=== PATIENT | female | born 1955 | race Caucasian/White ===

== ENCOUNTER 2017-11-15 06:30 | Emergency (ER) | payer OTHER ==
[2017-11-15] MEDS ORDERED: Ondansetron HCl/PF 4 MG/2 ML Vial ONE (06:38)
[2017-11-15 07:10] LABS: Band 30 % (5-11); Eosinophils 1 % (0-10); Hemoglobin 16.9 g/dL (12.0-16.0); Lymphocytes 8 % (21-51); MDiff Complete? YES; Mean Corpuscular HGB CONC 35.9 g/dL (32.0-36.0); Mean Corpuscular Hemoglobin 31.2 pg (27.0-31.0); Mean Corpuscular Volume 87.1 fl (81.0-99.0); Mean Platelet Volume 9.5 fL (7.4-10.4); Monocytes 1 % (0-10); Neutrophil 60 % (42-75); Platelet Count 207 thou/uL (130-400); Red Blood Cell (RBC) Count 5.42 mill/uL (4.20-5.40); White Blood Cell (WBC) Count 14.2 thou/uL (4.8-10.8)
[2017-11-15 07:12] LABS: ALT (SGPT) 31 U/L (8-55); AST (SGOT) 32 U/L (5-34); Albumin 4.5 g/dL (3.4-4.8); Alkaline Phosphatase 65 U/L (40-150); Anion Gap 14 mmol/L (10-20); BUN (Urea Nitrogen) 16 mg/dL (9.8-20.1); Bilirubin, Total 0.4 mg/dL (0.2-1.2); Calc. Creatinine Clearance 0 mL/min (70-130); Calcium 9.5 mg/dL (7.8-10.44); Carbon Dioxide 28 mmol/L (23-31); Chloride 107 mmol/L (98-107); Estimated GFR-MDRD 74; Globulin 2.7 g/dL (2.4-3.5); Glucose 135 mg/dL (80-115); Lipase 35 U/L (8-78); Potassium 3.8 mmol/L (3.5-5.1); Protein, Total 7.2 g/dL (6.0-8.3); Sodium 145 mmol/L (136-145)
[2017-11-15] MEDS ORDERED: Promethazine HCl 25 MG/ML VIAL ONE (07:12)
== END 2017-11-15 09:15 | disposition home or self-care (01) ==
LOC: SCSER 06:30
DX: R11.2 Nausea with vomiting, unspecified (principal); R19.7 Diarrhea, unspecified; R10.9 Unspecified abdominal pain; E03.9 Hypothyroidism, unspecified
CPT/HCPCS: 80053; 83690; 85025; 96365; 96375; J2405; J2550

== ENCOUNTER 2022-09-12 09:39 | Outpatient (CLI) | payer BC | END 2022-09-12 09:40 | disposition home or self-care (01) | LOC: SCSRAD 09:39 | PROVIDERS: ATTEND Physician Assistant | DX: M25.522 Pain in left elbow (principal); M19.022 Primary osteoarthritis, left elbow; M77.8 Other enthesopathies, not elsewhere classified ==